=== PATIENT | female | born 1995 | race Caucasian/White ===

== ENCOUNTER 2019-06-29 05:52 | Emergency (ER) | payer OTHER ==
[~2019-06-29] VITALS: Ht 154.9 cm; Wt 63.5 kg
[2019-06-29 06:46] VITALS: BP 129/73
== END 2019-06-29 07:05 | disposition home or self-care (01) ==
LOC: ER 05:52
DX: S40.022A Contusion of left upper arm, initial encounter (principal); S80.12XA Contusion of left lower leg, initial encounter; S80.11XA Contusion of right lower leg, initial encounter; R10.2 Pelvic and perineal pain; Z11.3 Encounter for screening for infections with a predominantly sexual mode of transmission; F17.210 Nicotine dependence, cigarettes, uncomplicated; Y04.8XXA Assault by other bodily force, initial encounter; Y93.89 Activity, other specified; Y92.89 Other specified places as the place of occurrence of the external cause; Y99.8 Other external cause status